=== PATIENT | female | born 1950 | race Hispanic/Latino ===

== ENCOUNTER 2024-12-30 19:36 | Inpatient (IN) | payer OTHER ==
[~2024-12-30] VITALS: Ht 149.9 cm; Wt 91.6 kg
[2024-12-30 20:34] LABS: BASOPHILS # (AUTO) 0.1 (0.0-0.1); BASOPHILS % 0.5 % (0.0-1.0); EOSINOPHILS # (AUTO) 0.1 (0.0-0.4); EOSINOPHILS % 0.8 % (0.0-6.0); HEMATOCRIT 43.5 % (34.2-44.1); HEMOGLOBIN 14.6 g/dL (12.0-16.0); LYMPHOCYTES # (AUTO) 1.3 (1.0-3.2); LYMPHOCYTES % 12.6 % (18.0-39.1); MEAN CORPUSCULAR HEMOGLOBIN 29.6 pg (28-32); MEAN CORPUSCULAR HGB CONC 33.6 g/dL (31-35); MEAN CORPUSCULAR VOLUME 88.1 fL (81-99); MONOCYTES # (AUTO) 0.6 (0.2-0.8); MONOCYTES % 5.3 % (4.4-11.3); NEUTROPHILS # (AUTO) 8.4 (2.1-6.9); NEUTROPHILS % 80.5 % (38.7-80.0); PLATELET COUNT 263 x10e3/uL (140-360); RED BLOOD COUNT 4.94 x10e6/uL (3.6-5.1); RED CELL DISTRIBUTION WIDTH 13.4 % (11.7-14.4); WHITE BLOOD COUNT 10.48 x10e3/uL (4.8-10.8)
[2024-12-30] MEDS: ONDANSETRON HCL INJ 2MG/ML 2ML 2 MG/ML VIAL IV STA (20:51)
[2024-12-30] MEDS: FAMOTIDINE 20 MG/2 ML VIAL IV STA (20:51)
[2024-12-30 20:58] LABS: ALANINE AMINOTRANSFERASE 22 IU/L (0-55); ALBUMIN 4.1 g/dL (3.5-5.0); ALKALINE PHOSPHATASE 83 IU/L (40-150); ANION GAP 16.7 mmol/L (8-16); BILIRUBIN,TOTAL 0.6 mg/dL (0.2-1.2); BLOOD UREA NITROGEN 13 mg/dL (7-26); BUN/CREATININE RATIO 16 (6-25); CALCIUM 9.3 mg/dL (8.4-10.2); CARBON DIOXIDE 26 mmol/L (22-29); CHLORIDE 97 mmol/L (98-107); CREATINE KINASE 59 IU/L (29-168); CREATININE, SERUM 0.83 mg/dL (0.57-1.11); EST GLOMERULAR FILTRATION RATE 73 ML/MIN (>=60); GLUCOSE 194 mg/dL (74-118); LIPASE 36 U/L (8-78); POTASSIUM 3.7 mmol/L (3.5-5.1); SODIUM 136 mmol/L (136-145); TOTAL PROTEIN 8.3 g/dL (6.5-8.1)
[2024-12-30 21:04] LABS: TROPONIN I < 0.001 ng/mL (0-0.300)
[2024-12-30 21:16] LABS: CLARITY,URINE CLEAR (CLEAR); COLOR,URINE YELLOW (YELLOW); GLUCOSE, URINE NEGATIVE (NEGATIVE); LEUKOCYTE ESTERASE ,URINE NEGATIVE (NEGATIVE); NITRITE,URINE NEGATIVE (NEGATIVE); PH,URINE 5.5 (5 - 7); PROTEIN,URINE DIPSTICK 1+ (NEGATIVE)
[2024-12-30 21:17] LABS: BILIRUBIN,URINE NEGATIVE (NEGATIVE); KETONES,URINE 1+ (NEGATIVE); URINE UROBILINOGEN 0.2 mg/dL (0.2 - 1)
[2024-12-30 21:33] LABS: BACTERIA,URINE MANY /HPF; EPITHELIAL CELLS,URINE MODERATE /LPF
[2024-12-30 21:34] LABS: RBC,URINE 0-5 /HPF (0-5)
[2024-12-30] MEDS: Morphine 4mg INJECTION 4 MG/ML INJ IV PRN (21:44)
[2024-12-30] MEDS: ONDANSETRON HCL INJ 2MG/ML 2ML 2 MG/ML VIAL IV PRN (21:44)
[2024-12-30 21:49] VITALS: PULSE 88; RESP 18; TEMP 98.8
[2024-12-30 22:15] VITALS: BP 147/79; PULSE 101; RESP 18; TEMP 97.6; O2SAT 97
[2024-12-30 22:44] VITALS: BP 147/79; PULSE 101; RESP 18; TEMP 97.6; O2SAT 97
[2024-12-30] MEDS ORDERED: METFORMIN HCL1000 MG (23:21)
[2024-12-30] MEDS ORDERED: CARDIZEM30 MG PO (23:28)
[2024-12-30] MEDS ORDERED: GLIPIZIDE2.5 MG (23:28)
[2024-12-30] MEDS ORDERED: METFORMIN HCL500 MG PO (23:28)
[2024-12-30] MEDS ORDERED: LOSARTAN POTAS100 MG PO (23:28)
[2024-12-31 04:18] VITALS: BP 125/72; PULSE 67; RESP 16; TEMP 97.7; O2SAT 96
[2024-12-31 08:00] VITALS: BP 139/78; PULSE 85; RESP 18; TEMP 97.9; O2SAT 97
[2024-12-31 08:25] LABS: BASOPHILS % 0.5 % (0.0-1.0); EOSINOPHILS # (AUTO) 0.1 (0.0-0.4); EOSINOPHILS % 1.2 % (0.0-6.0); HEMOGLOBIN 14.6 g/dL (12.0-16.0); LYMPHOCYTES # (AUTO) 1.5 (1.0-3.2); LYMPHOCYTES % 26.4 % (18.0-39.1); MEAN CORPUSCULAR HEMOGLOBIN 29.8 pg (28-32); MEAN CORPUSCULAR HGB CONC 33.2 g/dL (31-35); MEAN CORPUSCULAR VOLUME 89.8 fL (81-99); MONOCYTES # (AUTO) 0.5 (0.2-0.8); MONOCYTES % 8.7 % (4.4-11.3); NEUTROPHILS # (AUTO) 3.6 (2.1-6.9); PLATELET COUNT 248 x10e3/uL (140-360); RED CELL DISTRIBUTION WIDTH 13.5 % (11.7-14.4); WHITE BLOOD COUNT 5.76 x10e3/uL (4.8-10.8)
[2024-12-31 08:50] VITALS: BP 139/78; PULSE 60; RESP 18; TEMP 97.9; O2SAT 99
[2024-12-31 08:50] LABS: ALBUMIN 3.7 g/dL (3.5-5.0); ANION GAP 15.8 mmol/L (8-16); BILIRUBIN,TOTAL 1.4 mg/dL (0.2-1.2); CALCIUM 9.5 mg/dL (8.4-10.2); CREATININE, SERUM 0.79 mg/dL (0.57-1.11); POTASSIUM 3.8 mmol/L (3.5-5.1); TOTAL PROTEIN 7.5 g/dL (6.5-8.1)
[2024-12-31 09:44] LABS: TROPONIN I 0.001 ng/mL (0-0.300)
[2024-12-31 12:00] VITALS: BP 129/77; PULSE 68; RESP 17; TEMP 98; O2SAT 98
[2024-12-31 16:00] VITALS: BP 145/92; PULSE 81; RESP 17; TEMP 98; O2SAT 99
[2024-12-31] MEDS: SODIUM CHLORIDE 0.45% 1,000 ML IV SCH (16:58)
[2024-12-31 22:14] LABS: CREATINE KINASE 89 IU/L (29-168)
[2024-12-31 22:23] LABS: TROPONIN I < 0.001 ng/mL (0-0.300)
[2025-01-01] VITALS (8 sets, daily range): BP systolic 117–164; BP diastolic 60–90; PULSE 64–86; RESP 17–18; TEMP 98.1–98.7; O2SAT 97–100
[2025-01-01 06:11] LABS: BASOPHILS % 0.5 % (0.0-1.0); EOSINOPHILS # (AUTO) 0.3 (0.0-0.4); EOSINOPHILS % 4.7 % (0.0-6.0); HEMATOCRIT 39.2 % (34.2-44.1); LYMPHOCYTES # (AUTO) 1.4 (1.0-3.2); LYMPHOCYTES % 22.6 % (18.0-39.1); MEAN CORPUSCULAR HEMOGLOBIN 30.1 pg (28-32); MEAN CORPUSCULAR HGB CONC 33.2 g/dL (31-35); MEAN CORPUSCULAR VOLUME 90.7 fL (81-99); MONOCYTES # (AUTO) 0.5 (0.2-0.8); MONOCYTES % 7.4 % (4.4-11.3); NEUTROPHILS % 64.5 % (38.7-80.0); PLATELET COUNT 228 x10e3/uL (140-360); RED BLOOD COUNT 4.32 x10e6/uL (3.6-5.1); RED CELL DISTRIBUTION WIDTH 13.6 % (11.7-14.4); WHITE BLOOD COUNT 6.23 x10e3/uL (4.8-10.8)
[2025-01-01 06:40] LABS: ALBUMIN 3.1 g/dL (3.5-5.0); BILIRUBIN,DIRECT 0.3 mg/dL (0.0-0.5); BILIRUBIN,TOTAL 0.9 mg/dL (0.2-1.2); TOTAL PROTEIN 6.7 g/dL (6.5-8.1)
[2025-01-01 06:58] LABS: ANION GAP 12.9 mmol/L (8-16); CALCIUM 8.7 mg/dL (8.4-10.2); CREATININE, SERUM 0.81 mg/dL (0.57-1.11); POTASSIUM 3.9 mmol/L (3.5-5.1)
[2025-01-01] MEDS ORDERED: ACETAMINOPHEN 325 MG TAB PO PRN (23:15)
[2025-01-02] VITALS (10 sets, daily range): BP systolic 136–173; BP diastolic 67–98; PULSE 65–94; RESP 18–20; TEMP 97.7–98.7; O2SAT 93–100
[2025-01-02 06:32] LABS: BASOPHILS % 0.4 % (0.0-1.0); EOSINOPHILS # (AUTO) 0.1 (0.0-0.4); EOSINOPHILS % 0.6 % (0.0-6.0); HEMATOCRIT 42.3 % (34.2-44.1); HEMOGLOBIN 13.9 g/dL (12.0-16.0); LYMPHOCYTES # (AUTO) 1.6 (1.0-3.2); MEAN CORPUSCULAR HEMOGLOBIN 29.9 pg (28-32); MEAN CORPUSCULAR HGB CONC 32.9 g/dL (31-35); MONOCYTES # (AUTO) 0.5 (0.2-0.8); MONOCYTES % 4.9 % (4.4-11.3); NEUTROPHILS # (AUTO) 7.7 (2.1-6.9); NEUTROPHILS % 77.9 % (38.7-80.0); PLATELET COUNT 252 x10e3/uL (140-360); RED BLOOD COUNT 4.65 x10e6/uL (3.6-5.1); RED CELL DISTRIBUTION WIDTH 13.7 % (11.7-14.4); WHITE BLOOD COUNT 9.82 x10e3/uL (4.8-10.8)
[2025-01-02 07:01] LABS: ALBUMIN 3.7 g/dL (3.5-5.0); ANION GAP 15.3 mmol/L (8-16); BILIRUBIN,TOTAL 1.1 mg/dL (0.2-1.2); CALCIUM 9.5 mg/dL (8.4-10.2); CREATININE, SERUM 0.85 mg/dL (0.57-1.11); POTASSIUM 4.3 mmol/L (3.5-5.1); TOTAL PROTEIN 7.4 g/dL (6.5-8.1)
[2025-01-02] MEDS ORDERED: IBUPROFEN 600 MG TAB PO PRN (10:45)
[2025-01-02] MEDS: METRONIDAZOLE 500MG/NS 100ML 100 ML IV SCH (21:30)
[2025-01-03] VITALS (7 sets, daily range): BP systolic 107–158; BP diastolic 51–100; PULSE 65–87; RESP 17–20; TEMP 97.8–98.8; O2SAT 95–100
[2025-01-03] MEDS: CARVEDILOL 3.125 MG TAB PO SCH (09:03)
[2025-01-03 09:31] LABS: ALBUMIN 3.3 g/dL (3.5-5.0); ALBUMIN/GLOBULIN RATIO 0.8 (0.8-2.0); ANION GAP 13.9 mmol/L (8-16); BILIRUBIN,TOTAL 0.8 mg/dL (0.2-1.2); CALCIUM 8.7 mg/dL (8.4-10.2); CREATININE, SERUM 0.74 mg/dL (0.57-1.11); POTASSIUM 3.9 mmol/L (3.5-5.1); TOTAL PROTEIN 7.2 g/dL (6.5-8.1)
[2025-01-03] MEDS ORDERED: METOPROLOL TARTRATE INJ 1 MG/ML VIAL IV PRN (11:00)
[2025-01-03] MEDS ORDERED: NITROGLYCERIN 0.4 MG SUBL SL PRN (11:00)
[2025-01-03] MEDS: METOPROLOL SUCCINATE 50 MG TAB XL PO ONE (12:16)
[2025-01-03] MEDS ORDERED: METOPROLOL TARTRATE INJ 1 MG/ML VIAL ONE ×2 (12:39→13:05)
[2025-01-03] MEDS ORDERED: NITROGLYCERIN 0.4 MG SUBL ONE (12:39)
[2025-01-03] MEDS ORDERED: SODIUM CHLORIDE 0.9% 100 ML ONE (13:30)
[2025-01-03] MEDS ORDERED: IOPAMIDOL 370 MG/ML 100 ML INFUS..BTL INJ ONE (13:30)
[2025-01-03] MEDS: DIPHENOXYLATE/ATROPINE TAB PO ONE (21:54)
[2025-01-04] VITALS (7 sets, daily range): BP systolic 115–156; BP diastolic 66–74; PULSE 66–73; RESP 16–20; TEMP 97.8–98.9; O2SAT 93–100
[2025-01-04] MEDS ORDERED: COREG3.125 MG PO (17:38)
[2025-01-04] MEDS ORDERED: ONDANSETRON ODT4 MG PO (17:38)
[2025-01-04] MEDS ORDERED: METRONIDAZOLE500 MG PO (17:38)
[2025-01-04] MEDS ORDERED: PANTOPRAZOLE SO40 MG PO (17:38)
[2025-01-04] MEDS ORDERED: CEPHALEXIN500 MG PO (17:38)
[2025-01-05 06:04] LABS: HEPATITIS A ANTIBODY IGM (P) Negative; HEPATITIS B CORE IGM (P) Negative; HEPATITIS B SURFACE AG (P) Negative; HEPATITIS C ANTIBODY Non Reactive
== END 2025-01-04 19:30 | disposition home or self-care (01) | DRG 445 ==
LOC: ER 19:42 → ERHOLD 21:15 → MED/SURG3 22:31 → OBSVTOIN 01-01 09:58
PROVIDERS: ADMIT Internal Medicine; ATTEND Internal Medicine
PROC: 05HC33Z Insertion of Infusion Device into Left Basilic Vein, Percutaneous Approach (ICD-10-PCS; principal; 2024-12-31)
DX: K80.20 Calculus of gallbladder without cholecystitis without obstruction (principal); Z68.41 Body mass index [BMI] 40.0-44.9, adult; R74.01 Elevation of levels of liver transaminase levels; R19.7 Diarrhea, unspecified; R07.89 Other chest pain; I10 Essential (primary) hypertension; E11.9 Type 2 diabetes mellitus without complications; Z79.84 Long term (current) use of oral hypoglycemic drugs; E66.01 Morbid (severe) obesity due to excess calories; Z71.3 Dietary counseling and surveillance; Z79.899 Other long term (current) drug therapy
CPT/HCPCS: 36415; 36568; 75574; 80048; 80053; 80076; 81001; 82550; 82948; 83690; 84484; 85025; 93005; 99284; G0378; J0696; J2270; J2405; J2470; J2543; J7050; Q9967

== ENCOUNTER 2025-06-02 10:43 | Inpatient (IN) | payer OTHER ==
[~2025-06-02] VITALS: Ht 271.8 cm; Wt 91.6 kg
[2025-06-02] MEDS: LACTATED RINGER'S 1,000 ML INJ SCH (01:45)
[~2025-06-02 10:43] MED LIST: CARDIZEM30 MG PO; CEPHALEXIN500 MG PO; COREG3.125 MG PO; GLIPIZIDE2.5 MG; LOSARTAN POTAS100 MG PO; METFORMIN HCL1000 MG; METFORMIN HCL500 MG PO; METRONIDAZOLE500 MG PO; ONDANSETRON ODT4 MG PO; PANTOPRAZOLE SO40 MG PO
[2025-06-02] MEDS: DONNATAL/LIDOCAINE/MAALOX 30 ML SUSP PO ONE (12:37)
[2025-06-02] MEDS: ONDANSETRON HCL INJ 2MG/ML 2ML 2 MG/ML VIAL IV STA (12:37)
[2025-06-02 12:42] LABS: BASOPHILS % 0.1 % (0.0-1.0); EOSINOPHILS % 0.1 % (0.0-6.0); LYMPHOCYTES % 7.2 % (18.0-39.1); MONOCYTES % 4.7 % (4.4-11.3); NEUTROPHILS % 87.7 % (38.7-80.0); RED CELL DISTRIBUTION WIDTH 13.5 % (11.7-14.4)
[2025-06-02] MEDS: Morphine 4mg INJECTION 4 MG/ML INJ IV STA (12:52)
[2025-06-02 13:14] VITALS: PULSE 71; RESP 16; TEMP 98.4
[2025-06-02 13:21] LABS: EST GLOMERULAR FILTRATION RATE 72 ML/MIN (>=60)
[2025-06-02] MEDS ORDERED: IOPAMIDOL 370 MG/ML 100 ML INFUS..BTL INJ ONE (13:37)
[2025-06-02] MEDS: SODIUM CHLORIDE 0.9% 1000ML 1,000 ML IV SCH (15:20)
[2025-06-02] MEDS ORDERED: BRIMONIDINE TAR10 ML OP (16:36)
[2025-06-02] MEDS ORDERED: LOSARTAN POTAS100 MG PO (16:36)
[2025-06-02] MEDS ORDERED: DILTIAZEM 24HR300 MG PO (16:36)
[2025-06-02] MEDS ORDERED: FUROSEMIDE20 MG PO (16:36)
[2025-06-02] MEDS: ONDANSETRON HCL INJ 2MG/ML 2ML 2 MG/ML VIAL IV PRN (17:04)
[2025-06-02] MEDS: Morphine 4mg INJECTION 4 MG/ML INJ IV PRN (17:06)
[2025-06-02] MEDS ORDERED: BENZONATATE 100 MG CAP PO PRN (18:00)
[2025-06-02] MEDS ORDERED: DEXTROSE 50% SYRINGE 50 ML IV PRN (18:00)
[2025-06-02] MEDS ORDERED: ALBUTEROL/IPRATROPIUM 3 ML NEB NEB PRN (18:00)
[2025-06-02] MEDS ORDERED: MELATONIN 5 MG TABLET PO PRN (18:00)
[2025-06-02] MEDS ORDERED: DIPHENHYDRAMINE HCL 25 MG CAP PO PRN (18:00)
[2025-06-02] MEDS ORDERED: ACETAMINOPHEN 325 MG TAB PO PRN (18:00)
[2025-06-02] MEDS ORDERED: SIMETHICONE 80 MG CHEW PO PRN (18:00)
[2025-06-02 18:31] LABS: CHOL/HDL RATIO 3.7 (3.0-3.6); LDL CHOLESTEROL 141.0 MG/DL (60-130)
[2025-06-02] MEDS: HYDROMORPHONE 1MG/1ML INJ IV PRN (19:48)
[2025-06-02 19:56] VITALS: BP 106/107; PULSE 73; RESP 17; TEMP 97.4; O2SAT 98
[2025-06-02 23:12] VITALS: BP 187/99; PULSE 96; RESP 17; TEMP 97.8; O2SAT 98
[2025-06-03] VITALS (7 sets, daily range): BP systolic 142–188; BP diastolic 78–110; PULSE 96–110; RESP 17–20; TEMP 97.4–98; O2SAT 94–98
[2025-06-03] MEDS: METOCLOPRAMIDE HCL 10 MG/2ML VIAL IV STA (03:37)
[2025-06-03] MEDS: Morphine 4mg INJECTION 4 MG/ML INJ IV PRN (03:38)
[2025-06-03 05:55] LABS: BASOPHILS % 0.2 % (0.0-1.0); EOSINOPHILS % 0.0 % (0.0-6.0); LYMPHOCYTES % 4.9 % (18.0-39.1); MONOCYTES % 4.3 % (4.4-11.3); NEUTROPHILS % 90.3 % (38.7-80.0); RED CELL DISTRIBUTION WIDTH 13.5 % (11.7-14.4)
[2025-06-03 06:22] LABS: EST GLOMERULAR FILTRATION RATE 69.0 ML/MIN (>=60)
[2025-06-03] MEDS: METOCLOPRAMIDE HCL 10 MG/2ML VIAL IV SCH (06:24)
[2025-06-03] MEDS: PANTOPRAZOLE SOD 40 MG TABEC PO SCH (09:15)
[2025-06-03] MEDS: ONDANSETRON HCL INJ 2MG/ML 2ML 2 MG/ML VIAL IV PRN (09:16)
[2025-06-03] MEDS: HYDRALAZINE HCL 20 MG/ML VIAL IV PRN (09:24)
[2025-06-03 11:56] LABS: LYMPHOCYTES % (MANUAL) 9 % (19-48); MONOCYTES % (MANUAL) 4 % (3.4-9.0); NEUTROPHILS % (MANUAL) 87 % (40-74); PLATELET ESTIMATE ADEQUATE; PLATELET MORPHOLOGY COMMENT NORMAL
[2025-06-03] MEDS: BRIMONIDINE TARTRATE 0.15% OPTH DRPS 10ML BTL OP SCH (17:00)
[2025-06-03] MEDS: HYDROMORPHONE 1MG/1ML INJ IV PRN (17:23)
[2025-06-03] MEDS: LOSARTAN POTASSIUM 100 MG TAB PO SCH (21:00)
[2025-06-04] VITALS (8 sets, daily range): BP systolic 131–160; BP diastolic 66–92; PULSE 104–120; RESP 18–20; TEMP 97.7–98.9; O2SAT 93–95
[2025-06-04 06:37] LABS: BASOPHILS % 0.1 % (0.0-1.0); EOSINOPHILS % 0.0 % (0.0-6.0); LYMPHOCYTES % 3.8 % (18.0-39.1); MONOCYTES % 4.7 % (4.4-11.3); NEUTROPHILS % 88.8 % (38.7-80.0); RED CELL DISTRIBUTION WIDTH 14.1 % (11.7-14.4)
[2025-06-04 07:12] LABS: EST GLOMERULAR FILTRATION RATE 84.0 ML/MIN (>=60)
[2025-06-04] MEDS: Morphine 4mg INJECTION 4 MG/ML INJ IV PRN (08:50)
[2025-06-04] MEDS ORDERED: FUROSEMIDE INJ 10 MG/ML 4 ML VIAL IV ONE (15:45)
[2025-06-04] MEDS: FUROSEMIDE INJ 10 MG/ML 4 ML VIAL IV ONE ×2 (16:43→22:32)
[2025-06-04] MEDS: ENOXAPARIN SOD INJ 40 MG/0.4 ML SYR SC SCH (17:12)
[2025-06-05] VITALS (9 sets, daily range): BP systolic 133–152; BP diastolic 66–89; PULSE 88–105; RESP 16–20; TEMP 97.4–98.4; O2SAT 92–96
[2025-06-05 06:33] LABS: BASOPHILS % 0.1 % (0.0-1.0); EOSINOPHILS % 0.0 % (0.0-6.0); LYMPHOCYTES % 6.3 % (18.0-39.1); MONOCYTES % 4.8 % (4.4-11.3); NEUTROPHILS % 87.4 % (38.7-80.0); RED CELL DISTRIBUTION WIDTH 14.3 % (11.7-14.4)
[2025-06-05 07:04] LABS: EST GLOMERULAR FILTRATION RATE 87.0 ML/MIN (>=60)
[2025-06-05] MEDS: DOCUSATE SODIUM 100 MG CAP PO PRN (10:33)
[2025-06-05] MEDS: LIDOCAINE 4% PATCH TP PRN (10:33)
[2025-06-05] MEDS: POTASSIUM CHLORIDE 20 MEQ TAB CR PO PRN (10:34)
[2025-06-06] VITALS (12 sets, daily range): BP systolic 137–167; BP diastolic 75–90; PULSE 89–108; RESP 16–20; TEMP 97.3–98.4; O2SAT 92–98
[2025-06-06 05:59] LABS: BASOPHILS % 0.1 % (0.0-1.0); EOSINOPHILS % 0.0 % (0.0-6.0); LYMPHOCYTES % 5.8 % (18.0-39.1); MONOCYTES % 6.1 % (4.4-11.3); NEUTROPHILS % 87.1 % (38.7-80.0); RED CELL DISTRIBUTION WIDTH 14.0 % (11.7-14.4)
[2025-06-06 06:26] LABS: EST GLOMERULAR FILTRATION RATE 91.0 ML/MIN (>=60)
[2025-06-06] MEDS: FUROSEMIDE INJ 10 MG/ML 4 ML VIAL ONE (10:26)
[2025-06-07] VITALS (11 sets, daily range): BP systolic 142–163; BP diastolic 71–89; PULSE 79–99; RESP 16–20; TEMP 97.4–98.5; O2SAT 95–97
[2025-06-07 06:20] LABS: BASOPHILS % 0.5 % (0.0-1.0); EOSINOPHILS % 0.2 % (0.0-6.0); LYMPHOCYTES % 9.4 % (18.0-39.1); MONOCYTES % 8.2 % (4.4-11.3); NEUTROPHILS % 80.0 % (38.7-80.0); RED CELL DISTRIBUTION WIDTH 13.9 % (11.7-14.4)
[2025-06-07 06:43] LABS: EST GLOMERULAR FILTRATION RATE 92.0 ML/MIN (>=60)
[2025-06-07] MEDS: DILTIAZEM HCL ER 120 MG CAP PO SCH (08:12)
[2025-06-07] MEDS ORDERED: GADOBENATE DIMEGLUMINE 1 ML IV ONE (10:41)
[2025-06-07] MEDS: PERIPHERAL TPN FORMULA 1 BAG IV SCH (20:52)
[2025-06-08] VITALS (10 sets, daily range): BP systolic 139–168; BP diastolic 62–84; PULSE 63–92; RESP 18–20; TEMP 97.4–98.8; O2SAT 95–97
[2025-06-08] MEDS: POTASSIUM CHLORIDE 20 MEQ TAB CR PO STA (00:46)
[2025-06-08 06:13] LABS: BASOPHILS % 0.5 % (0.0-1.0); EOSINOPHILS % 0.4 % (0.0-6.0); LYMPHOCYTES % 11.3 % (18.0-39.1); MONOCYTES % 9.9 % (4.4-11.3); NEUTROPHILS % 75.0 % (38.7-80.0); RED CELL DISTRIBUTION WIDTH 13.5 % (11.7-14.4)
[2025-06-08 07:00] LABS: EST GLOMERULAR FILTRATION RATE 92.0 ML/MIN (>=60)
[2025-06-08] MEDS: FUROSEMIDE INJ 10 MG/ML 4 ML VIAL IV SCH (08:33)
[2025-06-08] MEDS ORDERED: FENTANYL CITRATE/PF 100MCG/2 ML INJ ONE ×2 (11:28→12:44)
[2025-06-08] MEDS ORDERED: ROCURONIUM BROMIDE 1 ML IV ONE (11:28)
[2025-06-08] MEDS ORDERED: LIDOCAINE HCL 2% LOCAL INJ 5 ML SDV VIAL INJ ONE (11:28)
[2025-06-08] MEDS ORDERED: PROPOFOL IV EMULSION 10 MG/ML 20 ML VIAL ONE (11:29)
[2025-06-08] MEDS ORDERED: SEVOFLURANE INHAL SOLN 250 ML PEN BTL ONE (11:29)
[2025-06-08] MEDS ORDERED: ACETAMINOPHEN 1000 MG/100 ML 100 ML IV ONE (11:29)
[2025-06-08] MEDS ORDERED: DEXAMETHASONE SOD PHOS INJ 4 MG/ML SDV ONE (12:23)
[2025-06-08] MEDS ORDERED: ONDANSETRON HCL INJ 2MG/ML 2ML 2 MG/ML VIAL ONE (12:23)
[2025-06-08] MEDS ORDERED: FAMOTIDINE 20 MG/2 ML VIAL IV ONE (12:23)
[2025-06-08] MEDS ORDERED: SUGAMMADEX SODIUM 200 MG/2 ML VIAL IV ONE (13:09)
[2025-06-08] MEDS: HYDROCODONE/APAP 7.5MG-325MG 1 EA TAB PO PRN (23:46)
[2025-06-09] VITALS (9 sets, daily range): BP systolic 111–163; BP diastolic 55–85; PULSE 59–85; RESP 17–20; TEMP 97.5–97.8; O2SAT 95–99
[2025-06-09 06:34] LABS: EST GLOMERULAR FILTRATION RATE 92.0 ML/MIN (>=60)
[2025-06-09 16:16] LABS: EST GLOMERULAR FILTRATION RATE 81.0 ML/MIN (>=60)
[2025-06-09] MEDS: POTASSIUM CHLORIDE 10MEQ EA PO ONE (23:25)
[2025-06-09] MEDS: POTASSIUM CHLORIDE 20MEQ/100ML 200 ML IV ONE (23:26)
[2025-06-10] VITALS (7 sets, daily range): BP systolic 120–151; BP diastolic 62–73; PULSE 66–83; RESP 17–18; TEMP 97.5–98.1; O2SAT 96–100
[2025-06-10 06:51] LABS: BASOPHILS % 0.2 % (0.0-1.0); EOSINOPHILS % 0.2 % (0.0-6.0); LYMPHOCYTES % 14.4 % (18.0-39.1); MONOCYTES % 8.9 % (4.4-11.3); NEUTROPHILS % 74.8 % (38.7-80.0); RED CELL DISTRIBUTION WIDTH 13.8 % (11.7-14.4)
[2025-06-10 07:08] LABS: EST GLOMERULAR FILTRATION RATE 91.0 ML/MIN (>=60)
== END 2025-06-10 16:12 | disposition home or self-care (01) | DRG 417 ==
LOC: ER 12:09 → ERHOLD 14:50 → MED/SURG3 16:54
PROVIDERS: ADMIT Internal Medicine; ATTEND Internal Medicine
PROC: 0FT44ZZ Resection of Gallbladder, Percutaneous Endoscopic Approach (ICD-10-PCS; principal; 2025-06-08 12:12)
DX: K80.10 Calculus of gallbladder with chronic cholecystitis without obstruction (principal); K85.10 Biliary acute pancreatitis without necrosis or infection; I47.29 Other ventricular tachycardia; I10 Essential (primary) hypertension; E11.9 Type 2 diabetes mellitus without complications; E78.5 Hyperlipidemia, unspecified; E27.9 Disorder of adrenal gland, unspecified; E66.01 Morbid (severe) obesity due to excess calories; Z79.84 Long term (current) use of oral hypoglycemic drugs
CPT/HCPCS: 36415; 71045; 74177; 74181; 74183; 74300; 80048; 80053; 80061; 82550; 82948; 83690; 83735; 83880; 84100; 84484; 85014; 85018; 85025; 88304; 93005; 93306; 94799; 99284; C1766; J0360; J1100; J1171; J1308; J1650; J1938; J2003; J2185; J2270; J2405; J2470; J2543; J2765; J3480; J7030; Q9967